=== PATIENT | male | born 1990 | race Caucasian/White ===

== ENCOUNTER 2021-02-05 01:20 | Emergency (ER) | payer MEDICAID, SELFPAY ==
--- NOTE | 2021-02-05 | ECG_ITS ---
Test Reason : CHEST PAIN Blood Pressure : / mmHG Vent. Rate : 056 BPM Atrial Rate : 056 BPM P-R Int : 158 ms QRS Dur : 100 ms QT Int : 404 ms P-R-T Axes : 050 031 041 degrees QTc Int : 389 ms Sinus bradycardia with sinus arrhythmia Left atrial enlargement RSR' or QR pattern in V1 suggests right ventricular conduction delay Borderline ECG No previous ECGs available Referred By: Generic ED Physician Electronically Signed By:DANI THOMAS
--- NOTE | ~2021-02-05 | XR_ITS ---
EXAMINATION: XR CHEST CLINICAL INFORMATION: Cough COMPARISON: None TECHNIQUE: 2 views of the chest were obtained. FINDINGS: Normal symmetric lung volumes. No parenchymal consolidation. No pleural effusion. No pneumothorax. Cardiomediastinal silhouette and pulmonary vascularity are within normal limits. No acute osseous abnormalities. Pectus excavatum. XR/XR chest 2V IMPRESSION: No acute findings.
[2021-02-05 01:38] VITALS: BP 117/63; PULSE 59; RESP 16; TEMP 37.3; O2SAT 96; BMI 22.3
--- NOTE | 2021-02-05 02:45 | ED_ITS ---
HPI - Chest Pain General Chief Complaint: Chest Pain Stated Complaint: chest pains congestion Time Seen by Provider: 02/05/21 01:56 Source: patient Mode of arrival: ambulatory History of Present Illness HPI narrative: 30-year-old male with history of asthma presents with worsening feelings with cough, chest tightness, and states that he ran out of his inhaler and notes he has had nasal congestion with headache and some mild nausea and so re throat. Otherwise denies abdominal pain, diarrhea, urinary pain/burning/frequency. Related Data Previous Rx's Medication Instructions Recorded amoxicillin-pot clavulanate 1 tab PO Q12H 10 Days #20 tab 02/05/21 [Augmentin] prednisone 40 mg PO DAILY 4 Days #8 tab 02/05/21 Allergies Allergy/AdvReac Type Severity Reaction Status Date / Time No Known Allergies Allergy Verified 02/05/21 03:10 [No Known Allergies*] Review of Systems Review of Systems: Pertinent positives and negatives as stated in HPI 10 point review of systems otherwise negative. PMFSH Past Medical History Source: nursing notes reviewed Medical History Asthma Heart murmur Social History Social History Alcohol intake: current Alcohol intake frequency: a few times a month Patient Tobacco Use Status: Never used Tobacco Use of substances other than those prescribed or required for medical reasons: Yes Substance Use Type: Marijuana Advance Directives: No Advance Directives Information Provided: No Physical Exam Vital Signs: Vital Signs: Last Vital Signs Temp 99.1 F 02/05/21 01:38 Pulse 75 02/05/21 03:10 Resp 12 02/05/21 03:10 BP 118/59 L 02/05/21 03:10 Pulse Ox 97 02/05/21 03:10 Body Mass Index 22.3 VITAL SIGNS: Reviewed. GENERAL: Well developed, well nourished, in no acute distress. HEAD: Normocephalic/atraumatic EYES: PERRLA, EOMI OROPHARYNX: no oral lesions noted, posterior pharynx clear with erythema and noted tonsillar enlargement/erythema NECK: Supple, no adenopathy LUNGS: Normal breath sounds. No adventitious sounds or accessory muscle use. SpO2<96> CHEST WALL: Noted pectus excavatum CARDIOVASCULAR: Regular rate and rhythm without noted murmurs ABDOMEN: Soft, non-tender, non-distended with bowel sounds. NEUROLOGIC: Alert and oriented x 4. Course Course Course Narrative: 30-year-old male with history and clinical presentation consistent with [id number] asthma exacerbation and likely increase to fact secondary to patient's pectus excavatum. Will treat for asthma exacerbation, obtain an x-ray. Review of all investigations demonstrate patient's strep test is positive and he will be treated with initial antibiotics here in the ED and then discharged with the remaining prescription. On re-evaluation patient notes improvement in his breathing and symptoms. MDM - Chest Pain Lab Data Labs: Lab Results 02/05/21 Range/Units 03:14 S. pyogenes GrpA NELSON Positive A (Negative) ECG Data ECG #1: Attestation: I personally reviewed and interpreted this ECG as follows: Prior ECG tracings: not available for review Interpretation: Sinus bradycardia with sinus arrhythmia, HR-56, KS/QRS/QTC are within normal limits. Discharge Plan Discharge Clinical Impression: Acute streptococcal pharyngitis, Mild asthma exacerbation Patient Disposition: Home, Self-Care Instructions: Albuterol (By breathing), Asthma (ED), Strep Throat (ED) Additional Instructions: 1. Recommend taking Tylenol/Motrin as needed for fevers greater than 100.4 as well as for pain. 2. Increase fluid hydration especially with water. 3. Follow-up with your primary care provider in the next 2-3 days for re-evaluation. Return to the ER for acute worsening of symptoms Prescriptions: New amoxicillin-pot clavulanate [Augmentin] 875-125 mg tablet 1 tab PO Q12H 10 Days Qty: 20 RF: 0 prednisone 20 mg tablet 40 mg PO DAILY 4 Days Qty: 8 RF: 0 Referrals: Physician,None [Primary Care Provider] - 2 days
[2021-02-05] MEDS: Albuterol Sulfate (0.083%) 2.5 MG/3 ML VIAL.NEB 5 MG INHALE (02:56)
[2021-02-05 02:59] VITALS: PULSE 52; O2SAT 96
[2021-02-05 03:10] VITALS: BP 118/59; PULSE 75; RESP 12; O2SAT 97
[2021-02-05] MEDS: predniSONE 20 MG TABLET 40 MG PO (03:14)
[2021-02-05 03:30] LABS: Strep A Nucleic Acid Positive (Negative)
[2021-02-05 03:37] LABS: COVID-19 Test Negative (Negative); IDNOW Serial# 9DD0AD1C
[2021-02-05] MEDS: Amoxicillin/Potassium Clav 875 MG TABLET PO (03:46)
[2021-02-05] MEDS: Albuterol Sulfate 90 MCG 8 GM INHALER 4 PUFF INHALE (03:55)
[2021-02-05 03:56] VITALS: PULSE 70; O2SAT 97
== END 2021-02-05 04:26 | disposition home or self-care (01) ==
PROVIDERS: Emergency Provider Student in an Organized Health Care Education/Training Program
DX: J45.901 Unspecified asthma with (acute) exacerbation (principal); J02.0 Streptococcal pharyngitis; Z20.822 Contact with and (suspected) exposure to COVID-19
CPT/HCPCS: 36415; 71046; 87635; 87651; 93005; 94640; 99284; 99285

== ENCOUNTER 2021-08-18 12:09 | Emergency (ER) | payer MEDICAID, SELFPAY ==
--- NOTE | ~2021-08-18 | XR_ITS ---
EXAMINATION: XR HAND, LEFT CLINICAL INFORMATION: Laceration COMPARISON: None TECHNIQUE: PA, lateral, and oblique views of the left hand. XR/XR hand LT 2V FINDINGS/IMPRESSION: No acute fracture or dislocation. Joint spaces are maintained. Soft tissues are unremarkable. No radiopaque retained foreign body.
[2021-08-18 12:25] VITALS: BP 116/54; PULSE 59; RESP 18; TEMP 36.6; O2SAT 98; BMI 24.7
[2021-08-18] MEDS: Diphth,Pertus(ACell),Tet Adult 0.5 ML SYRINGE IM (14:23)
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
== END 2021-08-18 16:03 | disposition home or self-care (01) ==
PROVIDERS: Emergency Provider Emergency Medicine Emergency Medical Services
DX: S61.412A Laceration without foreign body of left hand, initial encounter (principal); W25.XXXA Contact with sharp glass, initial encounter; Y93.89 Activity, other specified; Y92.414 Local residential or business street as the place of occurrence of the external cause; Y99.8 Other external cause status
CPT/HCPCS: 73120; 90471; 90715; 99283; 99284

== ENCOUNTER 2022-05-14 17:11 | Emergency (ER) | payer MEDICAID, SELFPAY | END 2022-05-14 20:09 | disposition left against medical advice (07) | PROVIDERS: Emergency Provider Emergency Medicine | DX: S01.91XA Laceration without foreign body of unspecified part of head, initial encounter (principal); X58.XXXA Exposure to other specified factors, initial encounter; Y93.9 Activity, unspecified; Y92.9 Unspecified place or not applicable; Y99.9 Unspecified external cause status ==

== ENCOUNTER 2022-05-15 10:07 | Emergency (ER) | payer MEDICAID, SELFPAY ==
--- NOTE | ~2022-05-15 | XR_ITS ---
EXAMINATION: XR HAND, LEFT CLINICAL INFORMATION: Pain. Injury. COMPARISON: 08/18/2021 TECHNIQUE: PA, lateral, and oblique views of the left hand. FINDINGS: No fracture or dislocation. Alignment maintained. Joint spaces are maintained. The soft tissues are unremarkable. XR/XR hand LT 2V IMPRESSION: Normal left hand.
[2022-05-15 10:22] VITALS: BP 121/57; PULSE 44; TEMP 36.9; O2SAT 98; BMI 24.3
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
[2022-05-15 12:34] VITALS: BP 118/63; PULSE 46; RESP 18; TEMP 36.7; O2SAT 99
[2022-05-15] MEDS: Diphth,Pertus(ACell),Tet Adult 0.5 ML SYRINGE IM (14:40)
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
== END 2022-05-15 14:56 | disposition home or self-care (01) ==
PROVIDERS: Emergency Provider Emergency Medicine
DX: S09.90XA Unspecified injury of head, initial encounter (principal); S60.512A Abrasion of left hand, initial encounter; M79.642 Pain in left hand; Y33.XXXA Other specified events, undetermined intent, initial encounter; Y93.9 Activity, unspecified; Y92.9 Unspecified place or not applicable; Y99.9 Unspecified external cause status; Z79.899 Other long term (current) drug therapy
CPT/HCPCS: 73120; 90471; 90715; 99284

== ENCOUNTER 2022-06-11 20:16 | Emergency (ER) | payer MEDICAID, SELFPAY ==
--- NOTE | ~2022-06-11 | CT_ITS ---
EXAMINATION: CT HEAD WITHOUT CONTRAST CLINICAL INFORMATION: Persistent vertigo COMPARISON: None. TECHNIQUE: Contiguous axial imaging was performed from the skull base to vertex without intravenous contrast. This CT examination was performed using dose optimization techniques as appropriate, variously including the following: * Automated exposure control * Adjustment of mA and/or kV according to patient size (this includes techniques or standardized protocols for targeted exams where dose is matched to indication/reason for exam; i.e. extremities or head) Use of iterative reconstruction technique DLP: 624 mGy-cm. FINDINGS: There is no evidence of acute intracranial hemorrhage or territorial infarction. No abnormal mass effect or midline shift is seen. Min to white matter differentiation is well preserved. No extra-axial fluid collections are identified. No hydrocephalus. No significant volume loss. There is no abnormal attenuation within the brain parenchyma. The osseous structures and soft tissues are normal. Partially opacified left sphenoid sinus. The mastoid air cells and visualized portions of the paranasal sinuses are otherwise well aerated. CT/CT head/brain wo IV con IMPRESSION: No acute intracranial pathology.
[2022-06-11 21:15] VITALS: BP 105/45; PULSE 44; RESP 18; TEMP 36.7; O2SAT 97; BMI 24.3
[2022-06-11 21:31] LABS: Hematocrit 42.8 % (42.0-52.0); Hemoglobin 14.7 g/dl (14.0-18.0); Mean Corpuscular HGB Conc 34.3 g/dl (31.0-36.0); Mean Corpuscular Hemoglobin 30.9 pg (27.0-33.0); Mean Corpuscular Volume 89.9 fL (80.0-98.0); Mean Platelet Volume 11.6 fL (9.4-12.4); Platelet Count 177 X10*3/uL (160-400); Red Blood Count 4.76 X10*6/uL (4.60-5.80); Red Cell Distribution Width 12.8 % (11.0-16.0); White Blood Count 10.2 X10*3/uL (4.8-10.8)
[2022-06-11 21:39] LABS: COVID-19 Test Negative (Negative)
[2022-06-11 21:45] LABS: Alanine Aminotransferase 11 U/L (0-40); Albumin Level 4.7 g/dL (3.5-5.0); Alkaline Phosphatase 76 U/L (39-117); Anion Gap 15 (12-20); Aspartate Amino Transferase 15 U/L (5-37); Bilirubin Total 0.9 mg/dL (0.0-1.0); Blood Urea Nitrogen 11 mg/dL (9-16); Calcium 9.9 mg/dL (8.4-10.2); Carbon Dioxide 24 mmol/L (22-29); Chloride 107 mmol/L (96-108); Creatinine Clr Calc Pharmacy 112.5; Estimated Glomerular Filt Rate > 60; Glucose Random 96 mg/dL (60-115); Potassium 3.9 mmol/L (3.3-5.1); Sodium 142 mmol/L (135-145); Total Protein 7.3 g/dL (6.5-8.0)
[2022-06-12] VITALS (9 sets, daily range): BP systolic 106–163; BP diastolic 56–89; PULSE 36–45; RESP 14–16; TEMP 36.5–36.8; O2SAT 95–98
--- NOTE | 2022-06-12 | ECG_ITS ---
Test Reason : SYNCOPEE Blood Pressure : / mmHG Vent. Rate : 035 BPM Atrial Rate : 035 BPM P-R Int : 176 ms QRS Dur : 100 ms QT Int : 512 ms P-R-T Axes : 048 -06 047 degrees QTc Int : 390 ms Marked sinus bradycardia Possible Left atrial enlargement RSR' or QR pattern in V1 suggests right ventricular conduction delay Abnormal ECG When compared with ECG of 05-FEB-2021 01:32, Vent. rate has decreased BY 21 BPM Referred By: Rachel Rosa Electronically Signed By:GEOVANY SALGADO MD
--- NOTE | 2022-06-12 00:45 | PC.NURSE ---
pt a&o, no sob or chest pain, dizziness, with vomiting and headache. Heart rate in the 30's. Ekg completed, Pacer pads placed. provider Into assess pt. Reported to JOHNY Osorio. pt is place on bedside monitor
--- NOTE | 2022-06-12 00:50 | PC.NURSE ---
PT ORTHOSTICS VITALS ,AND EKG DONE ,PATIENT WAS HOOKED UP TO SERVER ASSISTANT AND PACER PADS BY THIS PCT .
--- NOTE | 2022-06-12 00:59 | ED_ITS ---
HPI - Dizziness General Chief Complaint: Dizziness Stated Complaint: vertigo Time Seen by Provider: 06/11/22 23:49 Source: patient and family () Mode of arrival: ambulatory History of Present Illness HPI Narrative: 31-year-old male without significant past medical history presents with acute onset of vertigo while attempting to get up from his bed earlier today that was associated with photophobia and nausea/vomiting for 3 hours. Otherwise, patient denies any fever, chills, neck pain, shortness of breath, chest pain/palpitations, denies any activities in the s[place]ast[place] or pets that could potentially carry ticks. Patient denies any use of drugs or alcohol but does smoke marijuana occasionally. Related Data Previous Rx's Medication Instructions Recorded amoxicillin 875 mg-potassium 1 tab PO Q12H 10 days #20 tabs 02/05/21 clavulanate 125 mg tablet (Augmentin) prednisone 20 mg tablet 40 mg PO DAILY 4 days #8 tabs 02/05/21 Allergies Allergy/AdvReac Type Severity Reaction Status Date / Time No Known Allergies Allergy Verified 02/05/21 03:10 [No Known Allergies*] Review of Systems Review of Systems: Pertinent positives and negatives as stated in HPI 10 point review of systems is otherwise negative. PMFSH Past Medical History Source: nursing notes reviewed Medical History Asthma Heart murmur Social History Social History Alcohol intake: never Patient Tobacco Use Status: Never used Tobacco Use of substances other than those prescribed or required for medical reasons: Yes Substance Use Type: Marijuana Substance Use Frequency: Occasionally Advance Directives: No Physical Exam Vital Signs: Vital Signs: Last Vital Signs Temp 97.7 F 06/12/22 02:00 Pulse 45 L 06/12/22 02:00 Resp 16 06/12/22 02:00 BP 108/56 L 06/12/22 02:00 Pulse Ox 98 06/12/22 02:00 O2 Del Method 06/12/22 02:00 BMI result Body Mass Index 24.3 VITAL SIGNS: Reviewed. GENERAL: Well developed, well nourished, in no acute distress. HEAD: Normocephalic/atraumatic EYES: PERRLA, EOMI, no nystagmus EARS: Ext canals without abnormality but heavy cerumen load, TMs non-bulging and non-erythematous NOSE: Nares patent bilateral OROPHARYNX: no oral lesions noted, posterior pharynx clear NECK: Supple, no adenopathy LUNGS: Normal breath sounds. No adventitious sounds or accessory muscle use. SpO2<97>; CHEST WALL: Pectus excavatum CARDIOVASCULAR: Regular rate and rhythm without noted murmurs, no JVD or lower extremity edema. ABDOMEN: Soft, non-tender, non-distended with bowel sounds. MUSCULOSKELETAL: No tenderness, deformities, or effusions noted on gross inspection. EXTREMITIES: No cyanosis, clubbing or edema. SKIN: Inspection of the skin reveals no rashes NEUROLOGIC: Alert and oriented x 4. Strength and sensation to light touch were grossly intact x 4, no facial asymmetry, no pronator drift, cranial nerves 2-12 are grossly intact. Course Course Course Narrative: 31-year-old male with history and clinical presentation consistent with vertigo and on workup noted to have bradycardia that he endorses in the triage noted as being a history of bradycardia. His blood pressure is within normal limits and on review of the EKG there is no evidence of ND prolongation to suggest AV conduction etiology. Low clinical suspicion for a meningitis or spinal abscess. The cerumen may be contributing to patient's vertigo and will obtain UDS in a ddition to lab work which was otherwise negative for acute findings. Signed out to Dr Conner [facility] - Dizziness Lab Data Result diagrams: 06/11/22 21:20 06/11/22 21:20 Labs: Lab Results 06/11/22 06/11/22 06/11/22 Range/Units 21:20 21:20 21:20 WBC 10.2 (4.8-10.8) X10*3/uL RBC 4.76 (4.60-5.80) X10*6/uL Hgb 14.7 (14.0-18.0) g/dl Hct 42.8 (42.0-52.0) % MCV 89.9 (80.0-98.0) fL MCH 30.9 (27.0-33.0) pg MCHC 34.3 (31.0-36.0) g/dl RDW 12.8 (11.0-16.0) % Plt Count 177 (160-400) X10*3/uL MPV 11.6 (9.4-12.4) fL Absolute Nucleated RBC 0.000 (0.0-0.012) X10*3/uL Nucleated RBC % (auto) 0.0 (0.0-0.2) /100WBC ESR (0-15) MM/HR PT (10.0-13.1) SEC INR (0.9-1.1) APTT (26.0-36.4) SEC D-Dimer High Sensitivty NG/ML Sodium 142 (135-145) mmol/L Potassium 3.9 (3.3-5.1) mmol/L Chloride 107 (96-108) mmol/L Carbon Dioxide 24 (22-29) mmol/L Anion Gap 15 (12-20) BUN 11 (9-16) mg/dL Creatinine 0.92 (0.5-1.4) mg/dL Estim Creat Clear Calc 112.5 Estimated GFR > 60 Random Glucose 96 (60-115) mg/dL Calcium 9.9 (8.4-10.2) mg/dL Total Bilirubin 0.9 (0.0-1.0) mg/dL AST 15 (5-37) U/L ALT 11 (0-40) U/L Alkaline Phosphatase 76 (39-117) U/L C-Reactive Protein 0.08 (< or = 0.50) mg/dL Total Protein 7.3 (6.5-8.0) g/dL Albumin 4.7 (3.5-5.0) g/dL Urine Color Urine Appearance Urine pH (5.0-9.0) Ur Specific [place] (1.005-1.025) Urine Protein (Neg-Trace) mg/dL Urine Glucose (UA) (Negative) mg/dL Urine Ketones (Negative) mg/dL Urine Blood (Negative) Urine Nitrite (Negative) Ur Leukocyte Esterase (Negative) COVID-19 (HEATHER) Negative (Negative) COVID-19 Clin Com See Note 06/11/22 06/12/22 06/12/22 Range/Units 21:20 01:03 01:46 WBC (4.8-10.8) X10*3/uL RBC (4.60-5.80) X10*6/uL Hgb (14.0-18.0) g/dl Hct (42.0-52.0) % MCV (80.0-98.0) fL MCH (27.0-33.0) pg MCHC (31.0-36.0) g/dl RDW (11.0-16.0) % Plt Count (160-400) X10*3/uL MPV (9.4-12.4) fL Absolute Nucleated RBC (0.0-0.012) X10*3/uL Nucleated RBC % (auto) (0.0-0.2) /100WBC ESR 1 (0-15) MM/HR PT 13.0 (10.0-13.1) SEC INR 1.1 (0.9-1.1) APTT 33.8 (26.0-36.4) SEC D-Dimer High Sensitivty < 150 NG/ML Sodium (135-145) mmol/L Potassium (3.3-5.1) mmol/L Chloride (96-108) mmol/L Carbon Dioxide (22-29) mmol/L Anion Gap (12-20) BUN (9-16) mg/dL Creatinine (0.5-1.4) mg/dL Estim Creat Clear Calc Estimated GFR Random Glucose (60-115) mg/dL Calcium (8.4-10.2) mg/dL Total Bilirubin (0.0-1.0) mg/dL AST (5-37) U/L ALT (0-40) U/L Alkaline Phosphatase (39-117) U/L C-Reactive Protein (< or = 0.50) mg/dL Total Protein (6.5-8.0) g/dL Albumin (3.5-5.0) g/dL Urine Color Yellow Urine Appearance Turbid Urine pH 7.0 (5.0-9.0) Ur Specific [place] 1.025 (1.005-1.025) Urine Protein Trace (Neg-Trace) mg/dL Urine Glucose (UA) Negative (Negative) mg/dL Urine Ketones 15 (Negative) mg/dL Urine Blood Negative (Negative) Urine Nitrite Negative (Negative) Ur Leukocyte Esterase Negative (Negative) COVID-19 (HEATHER) (Negative) COVID-19 Clin Com ECG Data Attestation: I personally reviewed and interpreted this ECG as follows: Prior ECG tracings: available for review Interpretation: Marked sinus bradycardia, HR -37, ND/QRS/QTC is within normal limits. Discharge Plan Discharge Clinical Impression: Benign paroxysmal positional vertigo Patient Disposition: Still a Patient Prescriptions: No Action amoxicillin-pot clavulanate [Augmentin] 875-125 mg tablet 1 tab PO Q12H 10 Days Qty: 20 0RF prednisone 20 mg tablet 40 mg PO DAILY 4 Days Qty: 8 0RF
[2022-06-12] MEDS: 0.9 % Sodium Chloride 1,000 ML 999 ML IV (01:05)
[2022-06-12 01:15] LABS: C Reactive Protein 0.08 mg/dL (< or = 0.50)
[2022-06-12 01:15] LABS: INTERNATIONAL NORM RATIO 1.1 (0.9-1.1)
[2022-06-12 01:17] LABS: Partial Thromboplastin Time 33.8 SEC (26.0-36.4)
[2022-06-12 01:47] LABS: Erythrocyte Sedimentation Rate 1 MM/HR (0-15)
[2022-06-12 01:52] LABS: Appearance Urine Turbid; Color Urine Yellow; Glucose Urine UA Negative (Negative); Leukocyte Esterase Urine Negative (Negative); Nitrite Urine Negative (Negative); Specific Gravity - Urine 1.025 (1.005-1.025); Urine Blood Negative (Negative); Urine Ketones 15 mg/dL (Negative); Urine Protein Trace mg/dL (Neg-Trace)
[2022-06-12 02:02] LABS: D Dimer High Sensitivity < 150 NG/ML
[2022-06-12] MEDS: Meclizine HCl 25 MG TABLET PO (03:18)
--- NOTE | 2022-06-12 04:20 | PC.NURSE ---
PT ASLEEP VS TAKEN ,PT IN ROOM ,CALL DWYER WITHIN REACH .
[2022-06-12] MEDS: Butalb/Acetamin/Caff 50/325/40 TABLET 1 TAB PO (05:01)
== END 2022-06-12 06:26 | disposition home or self-care (01) ==
PROVIDERS: Emergency Provider Student in an Organized Health Care Education/Training Program
DX: H81.10 Benign paroxysmal vertigo, unspecified ear (principal); R00.1 Bradycardia, unspecified; Z20.822 Contact with and (suspected) exposure to COVID-19
CPT/HCPCS: 36415; 70450; 80053; 81003; 85027; 85379; 85610; 85652; 85730; 86140; 87635; 93005; 96360; 99284; 99285

== ENCOUNTER 2023-02-03 01:29 | Emergency (ER) | payer MEDICAID, SELFPAY ==
--- NOTE | ~2023-02-03 | XR_ITS ---
EXAMINATION: XR CHEST CLINICAL INFORMATION: Asthma COMPARISON: 02/05/2021 TECHNIQUE: 2 views of the chest were obtained. FINDINGS: Normal symmetric lung volumes. Pectus excavatum results in obscuration of the right heart border. No parenchymal consolidation. No pleural effusion. No pneumothorax. Cardiomediastinal silhouette and pulmonary vascularity are within normal limits. No acute osseous abnormalities. XR/XR chest 2V IMPRESSION: No acute findings.
[2023-02-03 01:36] VITALS: BP 128/56; PULSE 56; RESP 18; TEMP 36.6; O2SAT 95; BMI 25.8
[2023-02-03 03:23] VITALS: BP 111/54; PULSE 48; RESP 15; TEMP 36.7; O2SAT 96
--- NOTE | 2023-02-03 03:48 | PC.NURSE ---
pt c/o of asthma not being in control the last 4 days, sob, chest pain, wheezing pt states he ran out of his asthma meds pt able to speak in full sentences with effort aox4 pulse oximeter continuous
[2023-02-03 04:06] VITALS: PULSE 44; RESP 16; O2SAT 97
[2023-02-03] MEDS: Albuterol Sulfate (0.083%) 2.5 MG/3 ML VIAL.NEB 5 MG INHALE (04:06)
[2023-02-03] MEDS: predniSONE 20 MG TABLET 60 MG PO (04:48)
[2023-02-03 06:40] VITALS: BP 116/69; PULSE 70; RESP 18; O2SAT 93
--- NOTE | 2023-02-03 06:40 | PC.NURSE ---
VSS pt sleeping respirations even and unlabored no respiratory distress O2Sat 93% RA, aware
--- NOTE | 2023-02-03 06:54 | PC.NURSE ---
Handoff report given to JOHNY Eckert
--- NOTE | 2023-02-03 06:56 | ED.ASTHMA ---
HPI - Asthma General Chief Complaint: Asthma Stated Complaint: asthmatic, trouble breathing, no pump Time Seen by Provider: 02/03/23 04:00 Source: patient Mode of arrival: ambulatory Limitations: no limitations History of Present Illness HPI Narrative: 32-year-old male with history of asthma who presents emergency department for evaluation of shortness of breath. The patient states he has been feeling short of breath for approximately 3 days. He has been using his inhaler regularly with only minimal relief the shortness of breath. The patient states that he ran out of his inhaler and felt more short of breath this morning so came to emergency department for evaluation. The patient denied fever, chills, rhinorrhea, sore throat. He states he has a cough which is nonproductive. He states he is having chest pain with breathing. He denied nausea, vomiting or diarrhea. Related Data Previous Rx's Medication Instructions Recorded amoxicillin 875 mg-potassium 1 tab PO Q12H 10 days #20 tabs 02/05/21 clavulanate 125 mg tablet (Augmentin) prednisone 20 mg tablet 40 mg PO DAILY 4 days #8 tabs 02/05/21 tovbygxtks-[id number]-urfcviub 1 cap PO Q6H PRN headache #20 caps 06/12/22 50 mg-300 mg-40 mg capsule (Fioricet) meclizine 25 mg tablet 25 mg PO TID PRN dizziness #20 tabs 06/12/22 albuterol sulfate 90 mcg/actuation 2 puff inhalation Q4-6H PRN 02/03/23 aerosol inhaler (ProAir HFA) shortness of breath or wheezing #8.5 grams prednisone 20 mg tablet 60 mg PO DAILY 5 days #15 tabs 02/03/23 Allergies Allergy/AdvReac Type Severity Reaction Status Date / Time No Known Allergies Allergy Verified 02/05/21 03:10 [No Known Allergies*] Review of Systems Review of Systems: Yes all other systems are reviewed and are negative [facility] Past Medical History [facility] Narrative: Past medical history: Asthma. Social history: He occasionally smokes cigarettes. He occasionally drinks alcohol. He denies drug use. Medical History Asthma Heart murmur Social History Social History Alcohol intake: never Patient Tobacco Use Status: Never used Tobacco Smoked in Last 30 Days: Yes Use of substances other than those prescribed or required for medical reasons: No Substance Use Type: Marijuana Advance Directives: No Advance Directives Information Provided: No Physical Exam Vital Signs: Vital Signs: Last Vital Signs Temp 98.1 F 02/03/23 03:23 Pulse 70 02/03/23 06:40 Resp 18 02/03/23 06:40 BP 116/69 02/03/23 06:40 Pulse Ox 93 02/03/23 06:40 O2 Del Method Room Air 02/03/23 06:40 BMI result Body Mass Index 25.8 Const: Other: Awake, alert, male patient, pleasant, cooperative, talking in full sentences HEENT: Head: Yes normal to inspection, Yes normocephalic and Yes atraumatic Ears: external ears normal General nose exam: Normal external nose present Face and sinus: Yes normal facial exam Mouth: Normal oral and palatal mucosa present Throat: Yes posterior oropharynx normal Eyes: General: appearance normal, both eyes and all related structures Pupils: Equal, round and reactive pupils present Neck: Neck: Yes normal visual inspection, Yes no lymphadenopathy, Yes trachea midline and Yes supple Chest: Chest palpation & inspection: normal inspection of the chest and normal palpation of entire chest wall Resp: Other: Breath sounds symmetric bilaterally, patient has diffuse wheezing and rhonchi with no rales Auscultation: clear to auscultation bilaterally Cardio: Rate: regular rate Rhythm: regular rhythm Heart sounds: S1 normal heart sound present, S2 normal heart sound present and no murmurs GI: Inspection: Yes normal to inspection Palpation (GI): Soft to palpation, nontender and no guarding Auscultation: normal bowel sounds : General: Yes no CVA tenderness Back/Spine/Pelvis: Back: no CVA tenderness Skin: General skin exam: no rashes or lesions noted Neuro: Cranial nerves: Yes CN's II-XII intact bilaterally and Yes Equal, round and reactive pupils present Cognition (Neuro): normal cognition Motor exam (neuro): 5/5 motor strength present throughout Extrem: General: Yes normal to inspection Psych: Appearance: grossly normal Speech and movement: Normal speech and movement present Affect: normal affect Attitude: cooperative Medications Administered Discontinued Medications Generic Name Dose Route Start Last Admin Trade Name Freq PRN Reason Stop Dose Admin Albuterol Sulfate 5 mg 02/03/23 04:01 02/03/23 04:06 Albuterol Sulfate (0.083%) 2.5 Mg/3 Ml Vial.Neb INHALE 02/03/23 04:02 5 mg ONCE ONE Administration Prednisone 60 mg 02/03/23 04:05 02/03/23 04:48 Prednisone 20 Mg Tablet PO 02/03/23 04:06 60 mg ONCE ONE Administration Medical Decision Making Medical Decision Making MDM Narrative: 32-year-old male with a history of asthma who presents emergency department for evaluation of shortness of breath times 3 days. Patient has been using his inhaler frequently with only minimal relief. He ran out of his inhaler and became more short of breath this morning so came to the emergency department for evaluation. Patient's vital signs were normal. The patient's lung exam did reveal diffuse rhonchi and diffuse wheezing. Patient was ordered to get an albuterol nebulizer 5 mg and prednisone 60 mg orally. I ordered a two view chest x-ray on the patient. 07:00: Two-view chest x-ray was negative Patient is feeling significantly better after the above treatment. Patient still has some slight wheezing on lung exam so was given an albuterol inhaler 2 puffs Patient was given prescription for prednisone 60 mg once a day for 5 days and an albuterol inhaler veered Patient was discharged home Differential Diagnosis Differential Diagnoses: The differential diagnosis associated with the presentation includes Differential diagnosis includes was not limited to pneumonia, bronchitis, asthma exacerbation Admission/Observation Consideration of admission/observation: Escalation of care including admission/observation considered Independent Interpretation I performed an independent interpretation of an: Plain X-Ray Interpretation: My independent interpretation patient's chest x-ray is no acute disease Radiology Impression Discussion of test interpretation with radiology: I have reviewed the radiologist's reading. Radiologist Impression: XR chest 2V IMPRESSION: No acute findings. Dictated By:Sea Arredondo MD Discharge Plan Discharge Clinical Impression: Asthma with acute exacerbation Patient Disposition: Home, Self-Care Instructions: Asthma (ED) Additional Instructions: Your chest x-ray was normal. Your symptoms are consistent with a an asthma exacerbation caused by inflammation in the breathing tubes, most likely caused by pollen exposure. Take prednisone 20 mg pills, 3 pills once a day for 5 days. While you are taking prednisone, do not take any NSAIDs (Motrin, Advil, ibuprofen, Aleve, naproxen). Use the albuterol inhaler with the spacer, 2 puffs every 4-6 hours as needed for shortness of breath and wheezing. Follow-up with your doctor in 2 days. Please return to the emergency department if your symptoms get worse or if you develop any symptoms that are concerning to you. Prescriptions: New prednisone 20 mg tablet 60 mg PO DAILY 5 Days Qty: 15 0RF albuterol sulfate [ProAir HFA] 90 mcg/actuation HFA aerosol inhaler 2 puff inhalation Q4-6H PRN (Reason: shortness of breath or wheezing) Qty: 8.5 0RF No Action amoxicillin-pot clavulanate [Augmentin] 875-125 mg tablet 1 tab PO Q12H 10 Days Qty: 20 0RF prednisone 20 mg tablet 40 mg PO DAILY 4 Days Qty: 8 0RF meclizine 25 mg tablet 25 mg PO TID PRN (Reason: dizziness) Qty: 20 0RF [id number]-zannyujndhjrl-mgnc [Fioricet] 50-300-40 mg capsule 1 cap PO Q6H PRN (Reason: headache) Qty: 20 0RF
[2023-02-03 07:38] VITALS: BP 101/59; PULSE 68
--- NOTE | 2023-02-03 07:38 | PC.NURSE ---
assumed care of this pt at 0700. Dr. Figueroa at bedside upon assuming care. pt now cleared for discharge, discharge instructions reviewed with pt. hollys
== END 2023-02-03 07:38 | disposition home or self-care (01) ==
PROVIDERS: Emergency Provider Emergency Medicine Emergency Medical Services
DX: J45.901 Unspecified asthma with (acute) exacerbation (principal); R06.02 Shortness of breath; F17.200 Nicotine dependence, unspecified, uncomplicated; F12.90 Cannabis use, unspecified, uncomplicated; Z79.899 Other long term (current) drug therapy
CPT/HCPCS: 71046; 94640; 99284; 99285

== ENCOUNTER 2025-01-03 15:13 | Emergency (ER) | payer MEDICAID, SELFPAY ==
--- NOTE | ~2025-01-03 | XR_ITS ---
CLINICAL HISTORY: chest tightness, asthma 2 view chest x-ray Comparison: CR/SR - XR CHEST 2V - 02/03/23 01:47 EDT Findings: Relative increased opacity at the medial aspect of the right lung base is similar to the prior study and likely related to a pectus deformity. There is no consolidative process or evidence of pleural effusion. Normal size heart. No acute fracture. IMPRESSION: 1. No acute findings. This document has been electronically signed by: Dalila Gutiérrez MD on 01/03/2025 16:09:09
--- NOTE | 2025-01-03 15:21 | ED_ITS ---
HPI - General Adult General Chief complaint: Asthma Stated complaint: SOB / asthma Time Seen by Provider: 01/03/25 15:39 Source: patient, RN notes reviewed and old records reviewed Mode of arrival: ambulatory Limitations: no limitations History of Present Illness ED Provider: Quiana GRIMES narrative: Patient is a 34-year-old male with history of asthma presenting to the emergency department with complaint of shortness of breath and chest tightness since this morning. Does not currently have any albuterol inhalers or nebulizers at home. Denies recent fevers. Denies chest pain or palpitations. complaint: Shortness of breath Onset (ago): hour(s) Related Data Previous Rx's ?Medication ?Instructions ?Recorded amoxicillin 875 mg-potassium 1 tab PO Q12H 10 days #20 tabs 02/05/21 clavulanate 125 mg tablet (Augmentin) prednisone 20 mg tablet 40 mg (2 x 20 mg) PO DAILY 4 days 02/05/21 #8 tabs [id number] 1 cap PO Q6H PRN headache #20 caps 06/12/22 50 mg-300 mg-40 mg capsule (Fioricet) meclizine 25 mg tablet 25 mg PO TID PRN dizziness #20 tabs 06/12/22 albuterol sulfate 90 mcg/actuation 2 puff inhalation Q4-6H PRN 02/03/23 aerosol inhaler (ProAir HFA) shortness of breath or wheezing #8.5 grams prednisone 20 mg tablet 60 mg (3 x 20 mg) PO DAILY 5 days 02/03/23 #15 tabs albuterol sulfate 90 mcg/actuation 2 puff inhalation Q4-6H PRN 01/03/25 aerosol inhaler shortness of breath or wheezing #6.7 grams prednisone 20 mg tablet 20 mg PO DAILY #5 tabs 01/03/25 Allergies Allergy/AdvReac Type Severity Reaction Status Date / Time No Known Allergies Allergy Verified 01/03/25 15:24 [No Known Allergies*] Review of Systems Review of Systems: As per HPI Yes all other systems are reviewed and are negative Constitutional: Constitutional: Reports as per HPI PMFSH Past Medical History Medical History Asthma Heart murmur Social History Social History Alcohol intake: never Patient Tobacco Use Status: Never used Tobacco Smoked in Last 30 Days: No Use of substances other than those prescribed or required for medical reasons: No Substance Use Type: Marijuana Advance Directives: No Advance Directives Information Provided: No Physical Exam ED Vital Signs: Vital Signs - 24 hr 01/03/25 15:23 01/03/25 15:47 01/03/25 16:54 Temperature 97.8 F 98.3 F Pulse Rate 50 44 L 61 Respiratory Rate 20 16 19 Blood Pressure 124/65 115/72 Pulse Oximetry 96 98 Oxygen Delivery Method Room Air Room Air BMI result Body Mass Index 26.6 Vital signs have been reviewed and appear to be correct. Blood pressure normal. Heart rate normal. Respiratory rate normal. Temperature normal. Oxygen saturation normal. Const General: cooperative, healthy appearing and no acute distress Orientation/consciousness: oriented to person, oriented to place, oriented to time and patient oriented x3 Limitations: no limitations HENMT Head: Yes normocephalic and Yes atraumatic Ears: external ears normal General nose exam: Normal external nose present Face and sinus: Yes face symmetric Mouth: oropharynx normal and moist mucous membranes Throat: Yes uvula midline Eyes Pupils: Equal, round and reactive pupils present Neck Neck: Yes normal visual inspection and Yes supple Resp Effort & Inspection: normal respiratory effort and able to speak in complete sentences Auscultation: clear to auscultation bilaterally, no wheezes and lung sounds not diminished Cardio Rate: bradycardic (History of same on prior visits) Rhythm: regular rhythm Heart sounds: S1 normal heart sound present and S2 normal heart sound present GI Palpation (GI): Soft to palpation and nontender Auscultation: normoactive bowel sounds General: Yes no CVA tenderness Back/Spine/Pelvis Back: no CVA tenderness Skin General skin exam: elasticity normal and turgor normal Neuro General: oriented to person, oriented to place, oriented to time, patient oriented x3, moves all extremities, no focal motor deficits and CN's II-XI intact bilaterally Cranial nerves: Yes Equal, round and reactive pupils present Cognition (Neuro): normal cognition Extrem General: Yes full ROM, Yes no pedal edema and Yes no calf tenderness Psych Mental Status: mental status grossly normal Affect: normal affect Thought process: Normal thought process present Course Course Course Narrative: 01/03/25 1522 DIANA Joyce This is a Rapid Medical Examination (RME) performed by Juan Grier PA-C in [facility], [place]. Full HPI, ROS, assessment and treatment plan per primary provider in the Main ED. Hx: 34 yo M hx asthma here for eval of congestion, chest tightness, SOB on waking this morning. has been out of his inhaler x months. no nebulizer at home. PE/vitals: breath sounds diminished throughout, speaking in complete sentences, no tripoding or increased effort of breathing, dry cough noted. Plan: viral swabs, cxr Medications Administered Discontinued Medications Generic Name Dose Route Start Last Admin Trade Name Freq PRN Reason Stop Dose Admin Albuterol Sulfate 5 mg/ 0 mg 01/03/25 15:44 01/03/25 15:46 Albuterol/Ipratropium 3 ml INHALE 01/03/25 15:45 1 each ONCE ONE Administration Medical Decision Making Medical Decision Making [facility] Narrative: Patient is a 34-year-old male with history of asthma presenting to the emergency department with complaint of shortness of breath and chest tightness since this morning. On exam patient is awake, A+Ox3, VS WNL, afebrile, normal neurological exam without focal deficits, physical exam findings as above. Given reported symptoms and physical exam findings, initial differential includes but is not limited to asthma exacerbation, viral illness, COVID, flu, RSV, bronchitis, pneumonia. Viral serology negative. X-ray chest notable for no evidence of pneumonia. My interpretation is in agreement with the radiologist's interpretation. Patient reports improved symptoms after breathing treatment given in the emergency department. Will discharge patient home on course of prednisone, prescribed albuterol inhaler. Follow up with PCP as needed. Return precautions discussed. Patient verbalized understanding of and agreement with plan. Differential Diagnosis Differential Diagnoses: The differential diagnosis associated with the presentation includes As per [facility] Admission/Observation Consideration of admission/observation: Escalation of care including admission/observation considered Patient would have been admitted to the hospital had their work up had any findings where hospital admission was appropriate and their clinical presentation warranted hospital admission. Lab Data [facility] Lab Attestation statement: I reviewed the patient's lab results. as per [facility] Labs: Lab Results 01/03/25 Range/Units 15:32 Influenza Type A (PCR) NEGATIVE (Negative) Influenza Type B (PCR) NEGATIVE (Negative) RSV RNA Qual (PCR) NEGATIVE (Negative) SARS-CoV-2 RNA (RT-PCR) NEGATIVE (Negative) Independent Interpretation I performed an independent interpretation of an: Plain X-Ray Interpretation: No evidence of pneumonia on chest x-ray Radiology Impression Discussion of test interpretation with radiology: I have reviewed the radiologist's reading. Radiologist Impression: 2 view chest x-ray Comparison: CR/SR - XR CHEST 2V - 02/03/23 01:47 EDT Findings: Relative increased opacity at the medial aspect of the right lung base is similar to the prior study and likely related to a pectus deformity. There is no consolidative process or evidence of pleural effusion. Normal size heart. No acute fracture. IMPRESSION: 1. No acute findings. External Record Review External record reviewed: Inpatient record, Office record and Outpatient record Prescription Management I considered prescription management with: Other Chronic Conditions Patient?s care impacted by: Other (asthma) Discharge Plan Discharge Clinical Impression: Asthma with acute exacerbation Patient Disposition: Home, Self-Care Instructions: Asthma (DC) Additional Instructions: You were evaluated in the emergency department today for cough, wheezing and shortness of breath. You are being treated for an asthma exacerbation with a short course of steroids to decrease inflammation. You are being prescribed an inhaler which you can use every 4-6 hours as needed for shortness of breath. Please follow-up with your primary care provider this week. Return to the emergency department if you develop worsening shortness of breath, difficulty breathing, chest pain, fever not improved with Tylenol or ibuprofen, or any other concerning symptoms. Prescriptions: New albuterol sulfate 90 mcg/actuation HFA aerosol inhaler 2 puff inhalation Q4-6H PRN (Reason: shortness of breath or wheezing) Qty: 6.7 0RF prednisone 20 mg tablet 20 mg PO DAILY Qty: 5 0RF No Action amoxicillin-pot clavulanate [Augmentin] 875-125 mg tablet 1 tab PO Q12H 10 Days Qty: 20 0RF prednisone 20 mg tablet 40 mg PO DAILY 4 Days Qty: 8 0RF meclizine 25 mg tablet 25 mg PO TID PRN (Reason: dizziness) Qty: 20 0RF [id number]-[id number] [Fioricet] 50-300-40 mg capsule 1 cap PO Q6H PRN (Reason: headache) Qty: 20 0RF prednisone 20 mg tablet 60 mg PO DAILY 5 Days Qty: 15 0RF albuterol sulfate [ProAir HFA] 90 mcg/actuation HFA aerosol inhaler 2 puff inhalation Q4-6H PRN (Reason: shortness of breath or wheezing) Qty: 8.5 0RF Stand Alone Forms: Work/School Release Print Language: Cymraes
[2025-01-03 15:23] VITALS: BP 124/65; PULSE 50; RESP 20; TEMP 36.6; O2SAT 96; BMI 26.6
[2025-01-03] MEDS: Albuterol Sulfate 5 MG, Albuterol/Iprat 2.5/0.5MG 3 ML 3 ML INHALE (15:46)
[2025-01-03 15:47] VITALS: PULSE 44; RESP 16; O2SAT 96
[2025-01-03 16:21] LABS: Influenza A PCR NEGATIVE (Negative); Influenza B PCR NEGATIVE (Negative); Resp Syncy Virus RNA Qual PCR NEGATIVE (Negative); SARS COV2 PCR INHOUSE NEGATIVE (Negative)
[2025-01-03 16:54] VITALS: BP 115/72; PULSE 61; RESP 19; TEMP 36.8; O2SAT 98
[2025-01-03 17:49] VITALS: BP 115/72; PULSE 61; RESP 19; TEMP 36.8; O2SAT 98
== END 2025-01-03 17:51 | disposition home or self-care (01) ==
PROVIDERS: Physician Assistant Medical; Emergency Provider Emergency Medicine
DX: J45.901 Unspecified asthma with (acute) exacerbation (principal); R06.02 Shortness of breath; Z03.818 Encounter for observation for suspected exposure to other biological agents ruled out
CPT/HCPCS: 0241U; 71046; 94640; 99284; 99285

== ENCOUNTER → 2025-01-03 15:23 | Outpatient (BNV) | payer MEDICAID, SELFPAY | PROVIDERS: Emergency Provider Emergency Medicine; Visit Provider Radiology Diagnostic Radiology | DX: R06.02 Shortness of breath (principal) | CPT/HCPCS: 71046 ==